=== PATIENT | male | born 1950 | race Caucasian/White ===

== ENCOUNTER 2021-05-19 12:06 | Observation (INO) ==
[2021-05-19] MEDS ORDERED: ONDANSETRON 4 MG/2 ML VIAL IV STA (12:26)
[2021-05-19] MEDS ORDERED: SODIUM CHLORIDE 0.9% 1,000 ML IV STA (12:27)
[2021-05-19 12:33] LABS: Basophils % 0.1 % (0.0-0.8); Hematocrit 46.9 VOL% (42.0-52.0); Hemoglobin 15.5 GM/DL (14.0-18.0); Immature Granulocytes % 0.8 %; Immature Granulocytes Absolute 0.11 #; Lymphocytes # 0.5 10*3/uL (1.4-4.0); Lymphocytes % 3.7 % (21.2-54.2); Mean Corpuscular Volume 89.2 FL (87-102); Mean Platelet Volume 9.1 FL (9.6-12.0); Monocytes % 5.8 % (1.7-12.7); Neutrophils % 89.6 % (38.7-73.9); Platelet Count 275 T/CUMM (130-400); Red Blood Count 5.26 MC/CUMM (3.8-5.5); Red Cell Distribution Width 13.9 % (9.3-17.3); White Blood Count 14.1 T/CUMM (4-12)
[2021-05-19 13:00] LABS: Albumin 3.2 G/DL (3.4-5.0); Bilirubin,Total 0.5 MG/DL (0.2-1.0); Calcium 8.5 MG/DL (8.5-10.1); Osmolality,Calculated 274.8 MOS/KG (273-304); Potassium 3.8 MMOL/L (3.5-5.1); Total Protein 7.3 G/DL (6.4-8.2)
[2021-05-19 13:06] LABS: Lymphocytes 5 % (20-55); Segmented Neutrophils 90 % (50-85); Total Cells Counted 100
[2021-05-19 13:08] LABS: Platelet Estimate Adequate
[2021-05-19 14:30] LABS: Barbiturates Screen,Urine Negative (Negative); Benzodiazepines Screen,Urine Negative (Negative); Cannabinoid Screen,Urine Negative (Negative); Opiate Screen,Urine Negative (Negative); Phencyclidine Screen,Urine Negative (Negative)
[2021-05-19] MEDS ORDERED: ACETAMINOPHEN 325 MG TABLET PO PRN (16:26)
[2021-05-19] MEDS ORDERED: GLUCAGON 1 MG VIAL IM PRN (16:26)
[2021-05-19] MEDS ORDERED: DEXTROSE 50% 25 GM/50 ML VIAL IV PRN (16:26)
[2021-05-19] MEDS ORDERED: hydrALAZINE 20 MG/1 ML VIAL IV PRN (16:28)
[2021-05-19] MEDS ORDERED: ENOXAPARIN 30 MG/0.3 ML SYRINGE SUBCUT SCH (17:00)
[2021-05-19] MEDS: SODIUM CHLORIDE 0.9% 1,000 ML IV SCH (17:17)
[2021-05-19 17:48] LABS: Bacteria,Urine Occasional /HPF (Few); Bilirubin,Urine Small mg/dL (Negative); Blood, Urine Small mg/dL (Negative); Glucose,Urine (UA) Negative (Negative); Hyaline Casts,Urine 55 /LPF (0-3); Ketones,Urine 5 mg/dL (Negative); Mucus,Urine Many /LPF (Occasional); Nitrite,Urine Negative (Negative); Protein,Urine 100 MG/DL; RBC,Urine 4 /HPF (0-4); Urine Appearance CLOUDY (Clear); Urine Color Amber (Yellow); Urine Specific Gravity 1.026 (1.001-1.035)
[2021-05-19] MEDS: GABAPENTIN 400 MG CAPSULE PO SCH ×2 (20:59→21:01)
[2021-05-19] MEDS: oxyCODONE/ACETAMINOPHEN 5-325 MG TABLET PO PRN (21:59)
[2021-05-20] MEDS: ONDANSETRON 4 MG/2 ML VIAL IV PRN ×3 (03:14→20:33)
[2021-05-20] MEDS: SODIUM CHLORIDE 0.9% 1,000 ML IV SCH ×2 (03:57→16:24)
[2021-05-20 04:32] LABS: Basophils % 0.2 % (0.0-0.8); Hematocrit 45.2 VOL% (42.0-52.0); Hemoglobin 14.9 GM/DL (14.0-18.0); Immature Granulocytes % 0.5 %; Immature Granulocytes Absolute 0.06 #; Lymphocytes # 0.8 10*3/uL (1.4-4.0); Lymphocytes % 6.7 % (21.2-54.2); Mean Corpuscular Volume 88.8 FL (87-102); Mean Platelet Volume 9.2 FL (9.6-12.0); Monocytes % 7.3 % (1.7-12.7); Neutrophils % 85.3 % (38.7-73.9); Platelet Count 222 T/CUMM (130-400); Red Blood Count 5.09 MC/CUMM (3.8-5.5); Red Cell Distribution Width 14.4 % (9.3-17.3); White Blood Count 11.1 T/CUMM (4-12)
[2021-05-20 05:01] LABS: Bilirubin,Total 0.5 MG/DL (0.2-1.0); Calcium 8.3 MG/DL (8.5-10.1); Potassium 3.1 MMOL/L (3.5-5.1); Risk Ratio 5.93; Thyroid Stimulating Hormone 1.21 uIU/ml (0.358-3.74); Total Protein 6.8 G/DL (6.4-8.2); VLDL Cholesterol 30.2 MG/DL
[2021-05-20] MEDS ORDERED: POTASSIUM CHLORIDE 20 MEQ TABLET PO ONE (08:00)
[2021-05-20] MEDS ORDERED: OMEPRAZOLE 40 MG PO SCH (09:00)
[2021-05-20] MEDS: GABAPENTIN 400 MG CAPSULE PO SCH ×3 (09:50→21:52)
[2021-05-20] MEDS: PANTOPRAZOLE 40 MG TABLET PO SCH (09:50)
[2021-05-20] MEDS: LOSARTAN 50 MG TABLET PO SCH (09:50)
[2021-05-20] MEDS: oxyCODONE/ACETAMINOPHEN 5-325 MG TABLET PO PRN ×3 (09:50→20:31)
[2021-05-20] MEDS: amLODIPine 5 MG TABLET PO SCH (09:50)
[2021-05-20] MEDS: LOPERAMIDE 2 MG CAPSULE PO PRN ×2 (16:24→20:33)
[2021-05-20] MEDS ORDERED: ENOXAPARIN 40 MG/0.4 ML SYRINGE SUBCUT SCH (17:00)
[2021-05-21] MEDS: SODIUM CHLORIDE 0.9% 1,000 ML IV SCH (04:54)
[2021-05-21 06:03] LABS: Basophils % 0.2 % (0.0-0.8); Hemoglobin 14.6 GM/DL (14.0-18.0); Immature Granulocytes % 0.5 %; Immature Granulocytes Absolute 0.03 #; Lymphocytes # 0.9 10*3/uL (1.4-4.0); Lymphocytes % 14.7 % (21.2-54.2); Mean Corpuscular HGB Conc 31.7 GM/DL (32-36); Mean Corpuscular Volume 91.5 FL (87-102); Mean Platelet Volume 9.7 FL (9.6-12.0); Monocytes % 12.3 % (1.7-12.7); Neutrophils % 72.3 % (38.7-73.9); Platelet Count 241 T/CUMM (130-400); Red Blood Count 5.03 MC/CUMM (3.8-5.5); Red Cell Distribution Width 14.6 % (9.3-17.3); White Blood Count 5.8 T/CUMM (4-12)
[2021-05-21] MEDS: LOPERAMIDE 2 MG CAPSULE PO PRN ×2 (06:14→09:45)
[2021-05-21] MEDS: ONDANSETRON 4 MG/2 ML VIAL IV PRN ×2 (06:15→09:45)
[2021-05-21 06:28] LABS: Albumin 2.7 G/DL (3.4-5.0); Bilirubin,Total 0.6 MG/DL (0.2-1.0); Calcium 8.4 MG/DL (8.5-10.1); Osmolality,Calculated 279.5 MOS/KG (273-304); Potassium 4.3 MMOL/L (3.5-5.1); Total Protein 6.5 G/DL (6.4-8.2)
[2021-05-21 07:20] LABS: Band Neutrophils 18 % (0-10); Lymphocytes 12 % (20-55); Segmented Neutrophils 54 % (50-85); Total Cells Counted 100
[2021-05-21 07:21] LABS: Platelet Estimate Normal
[2021-05-21] MEDS ORDERED: ALUMINUM/MAGNES/SIMETH MAX STR 30 ML UDCUP PO PRN (08:04)
[2021-05-21] MEDS: amLODIPine 5 MG TABLET PO SCH (09:45)
[2021-05-21] MEDS: PANTOPRAZOLE 40 MG TABLET PO SCH (09:45)
[2021-05-21] MEDS: LOSARTAN 50 MG TABLET PO SCH (09:45)
[2021-05-21] MEDS: oxyCODONE/ACETAMINOPHEN 5-325 MG TABLET PO PRN (09:45)
[2021-05-21] MEDS: GABAPENTIN 400 MG CAPSULE PO SCH (10:37)
[2021-05-21 11:46] VITALS: BP 121/80
== END 2021-05-21 13:35 | disposition home or self-care (01) ==
LOC: EDBD → EDUNIT# → N.EDINP 12:06 → N.ED 12:06 → N.5E 16:53
PROVIDERS: ADMIT Internal Medicine; ATTEND Internal Medicine